=== PATIENT | female | born 1985 | race Caucasian/White ===

== ENCOUNTER 2018-11-26 15:35 | Emergency (ER) | payer BC, OTHER ==
[2018-11-26 15:46] VITALS: BP 143/88; PULSE 99; RESP 18; TEMP 97.7; O2SAT 100
[2018-11-26] MEDS ORDERED: Sodium Chloride 0.9% 1,000 ML IV STA (15:59)
--- NOTE | 2018-11-26 16:08 | ED PDOC ---
HPI: Abdomen Time Seen by Provider: 11/26/18 15:48 Chief Complaint (Nursing): Abdominal Pain Chief Complaint (Provider): Abdominal Pain History Per: Patient History/Exam Limitations: no limitations Onset/Duration Of Symptoms: Days (x2) Current Symptoms Are (Timing): Still Present Additional Complaint(s): 33 year old female presents to ED with a complaint of lower abdominal pain and cramping associated with multiple episodes of vomiting, watery diarrhea, and decreased appetite since last night. Patient took Mylanta at 0200 earlier this morning with no alleviation. Otherwise, she denies fever, chills, similar episodes in the past, recent sick contact, or taking pain medication for relief [employer]. Patient was sent from clinic to get CT performed. PCP: Dimitrios HOYT Against Medical Advice - AMA Patient Left Against Medical Advice: The patient declines admission to the hospital and wishes to leave the Emergency Department. This action is against my medical advice. This decision was made with informed refusal. The patient was told that admission to the hospital is necessary. Explanation of the reasons why were discussed. The risks of leaving were explained to the patient and include, but are not limited to, worsening of known or currently unknown conditions, permanent d isability and from undiagnosed or untreated conditions. The patient has the capacity to make this informed decision and understands my explanation of the current medical problem and risks of leaving. The patient voluntarily accepts these risks and signed an AMA form documenting our conversation. The patient was given the opportunity to ask questions and reconsider. The patient was encouraged to return to the Emergency Department at any time for further care. Past Medical History Reviewed: Historical Data, Nursing Documentation, Vital Signs Vital Signs: Last Vital Signs Temp 97.7 F 11/26/18 15:44 Pulse 99 H 11/26/18 15:44 Resp 18 11/26/18 15:44 BP 143/88 11/26/18 15:44 Pulse Ox 100 11/26/18 15:44 - Medical History PMH: Asthma (last attack 18 yrs ago), Sexually Transmitted Disease (herpes) - Surgical History Surgical History: No Surg Hx - Family History Family History: States: Unknown Family Hx - Home Medications Home Medications: Ambulatory Orders Medication Instructions Recorded Codeine Phosphate/Promethazi 05/30/14 [Codeine/Promethazine 10 mg/5 ml-6.25 mg/5 ml ] Etonogestrel/Ethinyl Estradiol 05/30/14 [Nuvaring] Hydrocodone/Acetaminophen [Vicodin 5 mg PO Q6 PRN 05/30/14 5 mg-500 mg] Ibuprofen [Motrin] 600 mg PO Q6 #20 tab 11/26/18 - Allergies Allergies/Adverse Reactions: Allergies Allergy/AdvReac Type Severity Reaction Status Date / Time Penicillins Allergy RASH Verified 11/26/18 15:44 Sulfa (Sulfonamide Allergy RASH Verified 11/26/18 15:44 Antibiotics) Review of Systems ROS Statement: Except As Marked, All Systems Reviewed And Found Negative Constitutional: Negative for: Fever, Chills Gastrointestinal: Positive for: Vomiting, Abdominal Pain (lower with cramping), Diarrhea (watery), Other (decreased appetite) Physical Exam - Reviewed Nursing Documentation Reviewed: Yes Vital Signs Reviewed: Yes - Physical Exam Appears: Positive for: Non-toxic, No Acute Distress, Uncomfortable Head Exam: Positive for: ATRAUMATIC, NORMAL INSPECTION, NORMOCEPHALIC Skin: Positive for: Normal Color Eye Exam: Positive for: Normal appearance ENT: Positive for: Normal ENT Inspection, TM Is/Are (clear bilaterally. nonbulging and nonbulging). Negative for: Pharyngeal Erythema, Tonsillar Swelling Neck: Positive for: Normal, Supple Cardiovascular/Chest: Positive for: Regular Rate, Rhythm Respiratory: Positive for: Normal Breath Sounds. Negative for: Respiratory Distress Gastrointestinal/Abdominal: Positive for: Soft, Tenderness (diffuse). Negative for: Distended Back: Positive for: Normal Inspection. Negative for: L CVA Tenderness, R CVA Tenderness Extremity: Positive for: Normal ROM (upper/lower) Neurologic/Psych: Positive for: Alert, Oriented. Negative for: Motor/Sensory Deficits - Laboratory Results Result Diagrams: 11/26/18 16:55 11/26/18 16:55 - ECG O2 Sat by Pulse Oximetry: 100 (RA) Pulse Ox Interpretation: Normal - Progress Re-evaluation Time: 19:28 Condition: Re-examined, Improved Medical Decision Making Medical Decision Making: Initial Impression: Abdominal pain; vomiting; diarrhea Differential diagnosis: acute colitis, diverticulitis, pancreatitis. less likely, acute appendicitis Initial Plan: * CT ABD/pelvis * Labs * IV fluids * Pepcid 20mg IVP * Zofran 4mg IVP * Influenza Scribe Attestation: Documented by Lea Zuniga, acting as a scribe for Yamiel Meyers MD. Provider Scribe Attestation: All medical record entries made by the Scribe were at my direction and personally dictated by me. I have reviewed the chart and agree that the record accurately reflects my personal performance of the history, physical exam, medical decision making, and the department course for this patient. I have also personally directed, reviewed, and agree with the discharge instructions and disposition. Time: 1899 CT RESULTS FINDINGS: LOWER THORAX: Heart size normal. Lung bases clear. Small hiatal hernia. LIVER: There is enlarged measuring over 21 cm in CC dimension. Mild diffuse fatty hepatic infiltration. No obvious hepatic mass collection or calcification. Portal and splenic veins opacified. GALLBLADDER AND BILE DUCTS: Gallbladder is physiologically distended. No evidence of intraluminal gal lbladder calculi. PANCREAS: Unremarkable. No gross lesion or ductal dilatation. SPLEEN: Unremarkable. ADRENALS: Unremarkable. No mass. KIDNEYS AND URETERS: Unremarkable. No hydronephrosis. No solid mass. VASCULATURE: Unremarkable. No aortic aneurysm. No aortic atherosclerotic calcification or mural plaque present. BOWEL: Evaluation of the bowel is somewhat limited due to the lack of oral contrast material. Stomach is incompletely distended with thick-walled appearance. Visualized loops of small bowel exhibit relatively normal contour and caliber however no obvious dense of acute mechanical small bowel obstruction.. Stool and air seen throughout most of the proximal colon. The splenic flexure and proximal descending colon are collapsed which in part presumably accounts for slight the thick-walled appearance however the possibility of a localized inflammatory process/colitis must be considered. There is also similar findings involving a short segment of the distal descending/sigmoid colon junction as well. APPENDIX: The appendix is not seen with complete certainty. However no obvious inflammatory changes right lower quadrant of the abdomen. Clinical correlation recommended PERITONEUM: Unremarkable. No free fluid. No free air. Small fat containing umbilical hernia. LYMPH NODES: Unremarkable. No enlarged lymph nodes. BLADDER: Urinary bladder is incompletely distended with thick-walled appearance. Correlation with urinalysis recommended. REPRODUCTIVE: Uterus is retroverted with suspected in situ pessary however clinical correlation with history is recommended.. Questionable small left adnexal cyst BONES: Mild multilevel degenerative spondylosis of the thoracic spine. OTHER FINDINGS: None. IMPRESSION: Hepatomegaly. There is incomplete distension of splenic flexure and proximal descending colon as well as a portion of the distal descending sigmoid colon junction which in in part accounts for slight thick-walled appearance however the possibility of a colitis given the patient's history of vomiting and diarrhea to be considered.. Clinical correlation recommended. Hepatomegaly. Mild to moderate fatty hepatic infiltration. Appendix is not seen with complete certainty therefore clinical correlation with history recommended with the history, physical exam and laboratory values as the possibility of a early acute appendicitis cannot be ruled out on this exam. Retroverted uterus with what appears represent in situ pessary.. Questionable le ft adnexal cyst. 1900 Discussed the results with the patient and the . Recommended surgical evaluation in ER to evaluate for possible appendicitis. Patient was also offered 24 hour observation with surgical consult and repeat CT abdomen in 24 hours. Patient refuses any surgical evaluation since she prefers different hospital for any specialty. Disposition - Clinical Impression Clinical Impression: Fatty infiltration of liver, Enlarged liver, Colitis, Abdominal pain, Left against medical advice - Patient ED Disposition Is Patient to be Admitted: No Doctor Will See Patient In The: Office Counseled Patient/Family Regarding: Studies Performed, Diagnosis, Need For Followup - Disposition Referrals: Dayanara Pagan MD [Staff Provider] - Michael Miranda MD, PhD [Staff Provider] - Disposition: Against Medical Advice Disposition Time: 19:29 Condition: GOOD Additional Instructions: Please return to ER within 24 hours if not improved. Prescriptions: Ibuprofen [Motrin] 600 mg PO Q6 #20 tab Instructions: Diarrhea in Adolescents and Adults, Acute Abdomen (Belly Pain), Adult (DC), Nonalcoholic Fatty Liver Disease (DC), Leaving Against Medical Advice Forms: [employer] (Welsh)
[2018-11-26 16:58] LABS: BASO % 0.3 % (0.0-2.0); EOS # 0.1 K/uL (0.0-0.7); EOS % 0.7 % (0.0-4.0); HEMOGLOBIN 13.3 g/dL (12.0-16.0); LYMPH # 3.5 K/uL (1.0-4.3); LYMPH % 28.2 % (20.0-40.0); MEAN CELL VOLUME 91.4 fl (81.0-99.0); MEAN CORPUSCULAR HEMOGLOBIN 30.5 pg (27.0-31.0); MEAN CORPUSCULAR HGB CONC 33.3 g/dL (33.0-37.0); MEAN PLATELET VOLUME 7.4 fl (7.2-11.7); MONO # 0.7 K/uL (0.0-0.8); MONO % 5.6 % (0.0-10.0); NEUT # 8.1 K/uL (1.8-7.0); NEUT % 65.2 % (50.0-75.0); RBC 4.36 Mil/uL (3.80-5.20); RED CELL DISTRIBUTION WIDTH 12.2 % (11.5-14.5); WHITE BLOOD COUNT 12.4 K/uL (4.8-10.8)
[2018-11-26 17:10] LABS: ALB/GLOB RATIO 1.3 (1.0-2.1); ALBUMIN 4.3 g/dL (3.5-5.0); ALT/SGPT 38 U/L (9-52); AST/SGOT 26 U/L (14-36); BLOOD UREA NITROGEN 7 mg/dl (7-17); CALCIUM 9.4 mg/dL (8.4-10.2); GFR NON-AFRICAN AMERICAN > 60; LIPASE 386 U/L (23-300)
[2018-11-26] MEDS ORDERED: Iohexol 300 100 ML IJ ONE (17:27)
[2018-11-26] MEDS ORDERED: Sodium Chloride 0.9% 50 ML IV ONE (17:28)
--- NOTE | 2018-11-26 19:00 | CT ---
Date of service: 11/26/2018 PROCEDURE: CT Abdomen and Pelvis with contrast HISTORY: Abdominal pain with vomiting and diarrhea. COMPARISON: None. TECHNIQUE: Contiguous helical/transaxial sections of the abdomen and pelvis performed following injection of approximately 90 cc of Omnipaque 300 contrast material. Additional 2D sagittal and coronal reformats generated. Radiation dose: Total exam DLP = 227.14 mGy-cm. This CT exam was performed using one or more of the following dose reduction techniques: Automated exposure control, adjustment of the mA and/or kV according to patient size, and/or use of iterative reconstruction technique. FINDINGS: LOWER THORAX: Heart size normal. Lung bases clear. Small hiatal hernia. LIVER: There is enlarged measuring over 21 cm in CC dimension. Mild diffuse fatty hepatic infiltration. No obvious hepatic mass collection or calcification. Portal and splenic veins opacified. GALLBLADDER AND BILE DUCTS: Gallbladder is physiologically distended. No evidence of intraluminal gallbladder calculi. PANCREAS: Unremarkable. No gross lesion or ductal dilatation. SPLEEN: Unremarkable. ADRENALS: Unremarkable. No mass. KIDNEYS AND URETERS: Unremarkable. No hydronephrosis. No solid mass. VASCULATURE: Unremarkable. No aortic aneurysm. No aortic atherosclerotic calcification or mural plaque present. BOWEL: Evaluation of the bowel is somewhat limited due to the lack of oral contrast material. Stomach is incompletely distended with thick-walled appearance. Visualized loops of small bowel exhibit relatively normal contour and caliber however no obvious dense of acute mechanical small bowel obstruction.. Stool and air seen throughout most of the proximal colon. The splenic flexure and proximal descending colon are collapsed which in part presumably accounts for slight the thick-walled appearance however the possibility of a localized inflammatory process/colitis must be considered. There is also similar findings involving a short segment of the distal descending/sigmoid colon junction as well. APPENDIX: The appendix is not seen with complete certainty. However no obvious inflammatory changes right lower quadrant of the abdomen. Clinical correlation recommended PERITONEUM: Unremarkable. No free fluid. No free air. Small fat containing umbilical hernia. LYMPH NODES: Unremarkable. No enlarged lymph nodes. BLADDER: Urinary bladder is incompletely distended with thick-walled appearance. Correlation with urinalysis recommended. REPRODUCTIVE: Uterus is retroverted with suspected in situ pessary however clinical correlation with history is recommended.. Questionable small left adnexal cyst BONES: Mild multilevel degenerative spondylosis of the thoracic spine. OTHER FINDINGS: None. IMPRESSION: Hepatomegaly. There is incomplete distension of splenic flexure and proximal descending colon as well as a portion of the distal descending sigmoid colon junction which in in part accounts for slight thick-walled appearance however the possibility of a colitis given the patient's history of vomiting and diarrhea to be considered.. Clinical correlation recommended. Hepatomegaly. Mild to moderate fatty hepatic infiltration. Appendix is not seen with complete certainty therefore clinical correlation with history recommended with the history, physical exam and laboratory values as the possibility of a early acute appendicitis cannot be ruled out on this exam. Retroverted uterus with what appears represent in situ pessary.. Questionable left adnexal cyst.
== END 2018-11-26 20:20 | disposition left against medical advice (07) ==
LOC: H.ER 15:35
DX: K76.0 Fatty (change of) liver, not elsewhere classified (principal); R16.0 Hepatomegaly, not elsewhere classified; K52.9 Noninfective gastroenteritis and colitis, unspecified; R10.9 Unspecified abdominal pain
CPT/HCPCS: 74177; 80053; 81025; 83690; 85025; 87804; 96374; 96375; 99285; J1885; J2405; J7030; Q9967